=== PATIENT | female | born 1995 | race Caucasian/White ===

== ENCOUNTER 2017-12-27 08:15 | Emergency (ER) | payer SELFPAY ==
[~2017-12-27] VITALS: Ht 170.2 cm; Wt 57.0 kg
[2017-12-27 08:23] VITALS: BP 131/80
== END 2017-12-27 09:33 | disposition home or self-care (01) ==
LOC: ED 08:30
DX: R07.89 Other chest pain (principal); F17.200 Nicotine dependence, unspecified, uncomplicated
CPT/HCPCS: 71045; 93005; 99284

== ENCOUNTER 2019-05-07 02:12 | Emergency (ER) | payer SELFPAY ==
[~2019-05-07] VITALS: Ht 170.2 cm; Wt 70.0 kg
[2019-05-07 02:14] VITALS: BP 136/86
--- NOTE | 2019-05-07 02:49 | NUR ---
URINE TO LAB PT TO US.
[2019-05-07 02:59] LABS: MICROSCOPIC NOT IND
[2019-05-07 03:01] LABS: CULTURE INDICATED? NO
[2019-05-07 03:29] LABS: BASOPHILS # (AUTO) 0.09 x10^3/uL (0-0.1); BASOPHILS % (AUTO) 1 % (0-1); EOSINOPHILS # (AUTO) 0.15 x10^3/uL (0-0.4); EOSINOPHILS % (AUTO) 2 % (1-7); LYMPHOCYTES # (AUTO) 2.89 x10^3/uL (1-3.4); LYMPHOCYTES % (AUTO) 37 % (22-44); MD NO; MEAN CORPUSCULAR HEMOGLOBIN 31.6 pg (27.0-34.8); MEAN CORPUSCULAR HGB CONC 32.9 g/dL (32.4-35.8); MEAN PLATELET VOLUME 9.6 fL (7.4-10.4); MONOCYTES # (AUTO) 0.65 x10^3/uL (0.2-0.8); MONOCYTES % (AUTO) 8 % (2-9); NEUTROPHILS # (AUTO) 4.04 x10^3/uL (1.8-6.8); NEUTROPHILS % (AUTO) 52 % (42-75); PLATELET COUNT 281 x10^3/uL (130-400); RED CELL DISTRIBUTION WIDTH 12.9 % (9.6-15.2)
[2019-05-07 03:39] LABS: ALANINE AMINOTRANSFERASE 17 U/L (12-78); ALBUMIN 3.5 g/dL (3.4-5.0); ANION GAP 6 mmol/L (5-15); CALCIUM 8.2 mg/dL (8.5-10.1); CHLORIDE 117 mmol/L (98-107); CREATININE 0.65 mg/dL (0.55-1.02)
[2019-05-07 03:43] LABS: ALKALINE PHOSPHATASE 64 U/L (45-117); BILIRUBIN,TOTAL 0.2 mg/dL (0.2-1.0); TOTAL PROTEIN 7.3 g/dL (6.4-8.2)
== END 2019-05-07 04:39 | disposition home or self-care (01) ==
LOC: ED 04:30
DX: N83.292 Other ovarian cyst, left side (principal); R10.30 Lower abdominal pain, unspecified
CPT/HCPCS: 36415; 76830; 80053; 81003; 83690; 84703; 85025; 99284